=== PATIENT | female | born 1930 | race Caucasian/White ===

== ENCOUNTER 2017-09-22 15:38 | Inpatient (IN) | payer MEDICARE ==
[2017-09-22 16:51] LABS: Oxyhemoglobin 97.5 % (94.0-97.0); Sodium 168 mmol/L (135-148)
[2017-09-22 16:52] LABS: Mode NRB; Vent NO
[2017-09-22 17:07] LABS: Hematocrit 45.3 % (36.0-47.0); Mean Platelet Volume 9.9 fL (7.4-10.4); White Blood Cell (WBC) Count 26.5 thou/uL (4.8-10.8)
[2017-09-22 17:11] LABS: PTT 26.5 SEC (22.9-36.1); Prothrombin Time 18.3 SEC (12.0-14.7)
[2017-09-22 17:23] LABS: Band 17 % (5-11); Macrocytosis SLIGHT = 6-15 cells (100X) (0-5/hpf); Neutrophil 66 % (42-75); Polychromasia SLIGHT = 2-3 cells (100X) (0-2/hpf)
[2017-09-22 17:38] LABS: Troponin I 0.019 ng/mL (< 0.028)
[2017-09-22] MEDS ORDERED: Piperacillin/Tazobactam 3.375 GM in Sodium Chloride 0.9% 100 ML IVPB ONE (17:45)
[2017-09-22 17:47] LABS: ALT (SGPT) 20 U/L (8-55); AST (SGOT) 14 U/L (5-34); Alkaline Phosphatase 114 U/L (40-150); Anion Gap 14 mmol/L (10-20); BUN (Urea Nitrogen) 45 mg/dL (9.8-20.1); Bilirubin, Direct 0.4 mg/dL (0.1-0.3); Bilirubin, Total 0.9 mg/dL (0.2-1.2); Calc. Creatinine Clearance 0 mL/min (70-130); Calcium 9.1 mg/dL (7.8-10.44); Carbon Dioxide 25 mmol/L (23-31); Chloride 130 mmol/L (98-107); Estimated GFR-MDRD 52; Globulin 3.2 g/dL (2.4-3.5)
[2017-09-22 18:00] LABS: Bilirubin Small (Negative); Blood, Urine Large (Negative); Glucose, Urine (Dipstick) Negative (Negative); Ketone, Urine Negative (Negative); Nitrite Negative (Negative); Protein, Urine (Dipstick) 30 mg/dL (Neg-Trace)
[2017-09-22 18:02] LABS: Bacteria/HPF None Seen HPF (None Seen); Hyaline Casts/LPF 4-6 HYALINE CAST LPF (0-3 Hyaline); Squamous Epithelial 0-3 HPF (0-3)
--- NOTE | 2017-09-22 18:07 | RAD ---
AP VIEW CHEST 09/22/17 HISTORY: Altered mental status. AP view chest is obtained on 09/22/17. AP view chest demonstrates calcification of the aorta. The lungs are well aerated. No evidence of act selwyn intrathoracic disease seen. No evidence of effusions, pneumonia or pneumothorax seen. Bilateral s houlder degenerative changes are seen. IMPRESSION: Calcification of the aorta, otherwise unremarkable AP view chest. POS: [facility]
--- NOTE | 2017-09-22 18:22 | CON ---
DATE OF CONSULTATION: 09/22/2017 CHIEF COMPLAINT: Fever. HISTORY: The patient is an 87-year-old shelter patient with Alzheimer's who was seen 24 hours a go by her son said she was fine. This morning was called because she developed a fever and was sent to the hospital at [place]. There they did a CT scan that showed a distended gallbladder, some gall bladder wall thickening, as well as pericholecystic fluid and stranding. Surgeon there was about to do surgery, but anesthesiologist felt it was safer to have her transfer here. PAST MEDICAL HISTORY: Alzheimer's disease. She has had a recent right hip fracture. PAST SURGICAL HISTORY: Hysterectomy. She had hip surgery in June. MEDICATIONS: She takes a medicine for Alzheimer's, son does not recall what it is. ALLERGIES: She has an allergy to MORPHINE. SOCIAL HISTORY: She has been in the shelter for 3 years. She is . No tobacco. FAMILY HISTORY: Noncontributory. She is full code. PHYSICAL EXAMINATION: VITAL SIGNS: Temperature is 98.2, pulse 95, blood pressure 98/67. GENERAL: Elderly, very cachectic female. She is awake, but does not communicate. Sunken eyes and c heek bones, very crusty lips. HEENT: Otherwise, unremarkable. LUNGS: Clear. HEART: Regular rate and rhythm. ABDOMEN: Soft, nondistended. She has some mild tenderness in the right upper quadrant. EXTREMITIES: Unremarkable. LABORATORY DATA: Her lab is pending, but I have been told that her sodium was high at the other hosp [facility]. I do not have that information. ASSESSMENT: She appears to be volume depleted, recommended admission, electrolyte correction, antibi otics. We will try and get scheduled laparoscopic cholecystectomy for tomorrow.
[2017-09-22 18:26] LABS: RBC/HPF 21-50 HPF (0-3)
[2017-09-22 18:27] LABS: Renal Epithelial 0-3 HPF (0-3); Transitional Epithelial 0-3 HPF (0-3); Yeast-All Forms None Seen HPF (None Seen)
[2017-09-22] MEDS ORDERED: Milk Of Magnesia 30 ML UDCUP PO PRN (19:26)
[2017-09-22] MEDS ORDERED: Fleet Enema 133 ML BOT PR PRN (19:26)
[2017-09-22] MEDS ORDERED: Phytonadione 10 MG/ML AMP SC SCH (20:15)
[2017-09-22] MEDS ORDERED: Acetaminophen 325 MG TAB PO PRN (20:21)
[2017-09-22] MEDS ORDERED: Sodium Chloride 0.9% 1,000 ML IV SCH (20:21)
[2017-09-22] MEDS ORDERED: Ondansetron HCl/PF 4 MG/2 ML Vial IVP PRN (20:21)
[2017-09-22] MEDS ORDERED: Ondansetron ODT 4 MG TAB SL PRN (20:21)
--- NOTE | 2017-09-22 20:23 | PDOC.EVN ---
Event Note - Event Note Event Note: Attending H&P I personally evaluated the patient and discussed the management with Dr. Wilburn and Kassidy. I have reviewed the written H&P and it is repeated by me. I agree with the History, Examination, Assessment and Plan documented above with any addition or exceptions noted below. Ms. Aguilar has acute cholecystitis with severe sepsis. We appreciate Dr Nieto's surgical expertise in this matter. Patient has known significant dementia and lacks capacity/competency to make informed decisions for her care. After family discussions with Dr Nieto and Dr Yi, the and son confirmed that she is DNR. Antibiotics, IV fluid resuscitation were initiated in the ER and continue. MAP has been >65. GI prophylaxis intiaited. Vit K ordered for elevated INR. DVT prophylaxis ordered as well. Prognosis is guarded.
--- NOTE | 2017-09-22 20:26 | PDOC.EVN ---
Event Note - Event Note Event Note: Attedning H&P addendum Patient also has significant hypernatremia. Judicious IV hydration to avoid rapid correction yet while supporting her intravascular volume in the face of severe sepsis. Will have serial sodium checks tonight.
[2017-09-22] MEDS ORDERED: Lactated Ringer's 1,000 ML IV SCH ×3 (20:30→22:15)
[2017-09-22] MEDS ORDERED: Famotidine/PF 20 mg/2ml Vial SLOW IVP SCH (21:00)
[2017-09-22] MEDS ORDERED: cefOXitin 2 GM in Sodium Chloride 0.9% 100 ML IVPB SCH (22:00)
[2017-09-22] MEDS: Lactated Ringer's 1,000 ML IV SCH (22:05)
[2017-09-22] MEDS ORDERED: Acetaminophen 1,000 MG in Premix Bag 1 BAG IVPB PRN (22:07)
[2017-09-22] MEDS: cefOXitin 2 GM, Syringe 1 ML in Sterile Water 10 ML SLOW IVP SCH (22:29)
--- NOTE | 2017-09-22 23:31 | PDOC.EVN ---
Event Note - Event Note Event Note: Patient has had decline in her blood pressure. Recent MAPS have been between 65 -78. I initiated a third bolus of fluid, which will be appx 60 ml/kg of fluid resuscitation. I spoke with available family, which included patient's daughter and all available family agreed that if the patient's illness declined where her blood pressure dropped below MAP of 65, that the patient would not want a central line and pressors. I discussed the risks and benefits of that decision and they stated that they do not think that the patient would choose that if she could consent. will continue to fluid resuscitate as needed. Patient is in severe sepsis and already had developed hypovolemic hypernatremia before, she she may need signifcant amounts of fluids. We will watch sodium carefully.
[2017-09-22] MEDS ORDERED: Piperacillin/Tazobactam 4.5 GM in Sodium Chloride 0.9% 100 ML IVPB SCH (23:59)
[2017-09-23] MEDS: Piperacillin/Tazobactam 2.25 GM in Sodium Chloride 0.9% 100 ML IVPB SCH ×5 (00:11→23:49)
[2017-09-23 00:20] LABS: Anion Gap 11 mmol/L (10-20); BUN (Urea Nitrogen) 36 mg/dL (9.8-20.1); Calc. Creatinine Clearance 23 mL/min (70-130); Calcium 8.2 mg/dL (7.8-10.44); Carbon Dioxide 23 mmol/L (23-31); Chloride 134 mmol/L (98-107); Estimated GFR-MDRD 37
[2017-09-23] MEDS ORDERED: Lactated Ringer's 1,000 ML IV SCH ×3 (01:30→04:30)
--- NOTE | 2017-09-23 01:31 | HP-2 ---
CODE STATUS: DNR. PRIMARY CARE PHYSICIAN: Dr. Crescencio Vega ATTENDING: Dr. Xander Mina. RESIDENT: Dr. Mary Lou Wilburn. HISTORIAN: Patient's and son. CHIEF COMPLAINT: Increased drowsiness and fever. HISTORY OF PRESENT ILLNESS: Patient is an 87-year-old female with past medical history of severe Alz heimer's dementia, presents to the [place] ED from her [facility] with fever, found to have a gang renous gallbladder on CT at [place] ED. At baseline, the patient is alert and oriented x0, but janie nobles reports is normally more awake than when she first arrived to the ED. Family denies recent cough, congestion, change in stools, diarrhea. They report possible poor intake, but since the patient is at the [facility], they are not able to fully evaluate p.o. intake on a day to day basis. Family r eports that after receiving 1 liter normal saline in the ED that she is at her baseline. In the ED, she was given vancomycin and Zosyn and 1 liter normal saline. PAST MEDICAL HISTORY: Alzheimer's. PAST SURGICAL HISTORY: 1. Hysterectomy. 2. Right hip surgery. ALLERGIES: MORPHINE. MEDICATIONS: 1. Ascorbic acid 500 mg p.o. daily. 2. Alendronate sodium 35 mg p.o. q.7 days. 3. MiraLax 17 grams p.o. daily. 4. Mirtazapine 15 mg p.o. daily. 5. Vitamin D2 50,000 units p.o. every 7 days. 6. Senior multivitamins daily. 7. Senokot 1 tab p.o. daily. 8. Potassium chloride 7.5 mL p.o. daily. 9. Calcium carbonate/vitamin D3 one tab p.o. b.i.d. 10. Zinc sulfate 220 mg p.o. daily. 11. Nutritional supplement resource 2.09 mL p.o. t.i.d. FAMILY HISTORY: Noncontributory. SOCIAL HISTORY: Does have former smoking history. No alcohol or drug use. Patient lives in a [facility] home. REVIEW OF SYSTEMS: Hard to obtain due to the patient not able to report symptoms, but this is obtain ed from family members that who have seen her and they report fever, increased sleepiness or drowsine ss and fatigue and a right heel pressure ulcer. The patient has incontinence at baseline. All perti nent negatives are mentioned above in the HPI, including no cough, congestion, shortness of breath, e hong, nausea, vomiting, diarrhea, constipation, abdominal pain, rashes, syncope, or seizure. PHYSICAL EXAMINATION: VITAL SIGNS: Blood pressure 110/78, pulse 83, respiratory rate 18, T-max 98.2, pulse ox 100% on nonr ebreather, when evaluating her, she was on 2 liters and satting 97%. Current weight 54.43 kilograms. GENERAL: The patient is alert and oriented x0. SKIN: She has her eyes open. She is looking around. She mumbles nondescript word on occasion, but does not respond appropriately to questions. EYES: PERRLA, EOMI. ENT: Dry mucous membranes with obvious cracking of the lips. CARDIOVASCULAR: Regular rate and rhythm. No murmurs. Radial pulses 1+. RESPIRATORY: Normal effort, no retractions, clear to auscultation bilaterally. ABDOMEN: Positive guarding with groaning to palpation diffusely on the abdomen. Bowel sounds presen t. EXTREMITIES: There is trace lower extremity edema bilaterally, and a bruise/tender sore that is not open on posterior calcaneus of the right heel. MUSCULOSKELETAL: The patient has diffuse atrophy of muscles, obvious of malnutrition. NEUROLOGIC: No focal deficits, although the patient is hard to evaluate due to her status and not ab le to obey commands. LABORATORY DATA: CBC, white blood cell count 26.5, hemoglobin 14.1, hematocrit 45.3, platelets 101. Chemistry: Sodium 166, potassium 3.8, chloride 130, CO2 of 25, BUN 45, creatinine 1.01, glucose 158 , GFR 52, calcium 9.1, total protein 6.0, albumin 2.8, AST 14, ALT 20, alkaline phosphatase 114, tota l bilirubin 0.9, direct bilirubin 0.4. Coags: PT 18.3, INR 1.5, PTT 26.5. Lactic acid was 4 in the outside ER. Repeat lactic acid here is 5. CK-MB 1.5, troponin 0.019. TSH 2.2132. ABG was perform ed, pH 7.47, pCO2 of 29.9, PaO2 202.9. Chest x-ray shows calcification of the aorta, no acute proces s. CT from prior ER shows gangrenous gallbladder. ASSESSMENT AND PLAN: 1. Severe sepsis secondary to gangrenous gallbladder. Dr. Nieto was consulted in the ED, came down and evaluated the patient. The patient is not stable for surgery at this point would likely need IV fluid resuscitation and IV antibiotics prior to surgery. We will reevaluate tomorrow for possible davis rgery. Her possible laparoscopic cholecystectomy. We will continue with IV vancomycin and Zosyn. W e will give another liter of LR and maintenance fluids. We will provide Tylenol for fever and pain. we will repeat the lactic acid in 4 hours. The patient's blood pressure is on the low end of normal and continues to drop. Likely, we will need increased fluid resuscitation. We will reevaluate afte r 1 liter to maintain map above 65. Admit to IMCU. 2. Hypovolemic hypernatremia likely due to severe dehydration with sepsis in baseline, dehydration f rom fpc and end-stage dementia. We will start with 1 liter of LR and continue to reevaluate with q.4 hour BMPs and volume status clinically to determine need for more fluids. Anticipate multi ple liters to be given. Goal for decreasing sodium will be about 10 points in 24 hours. We will rec heck BMP as stated above in 4 hours. 3. Possible respiratory failure. Initially, patient was put on nonrebreather when we evaluated her, she is on nasal cannula at 2 liters and satting well. An ABG was done, which showed elevated PaO2. In the process of weaning down her oxygen at this point to determine her respiratory standpoint, it is unclear, if she was hypoxic at the ED in [place] from notes. We will continue to evaluate and pr ovide supplemental oxygen as needed. 4. Elevated PT and INR. Patient not taking any anticoagulants, but does have slightly elevated INR and PT and in preparation for surgery, we will give a small dose of vitamin K to decrease risk for bl eeding. 5. Lactic acidosis secondary to problem #1. 6. Respiratory alkalosis. We will monitor, respiratory rate. Unclear the cause of this at this poi nt, but consider repeat ABG in the morning. We will continue to monitor O2 sats and respiratory rate . 7. Severe end-stage chronic obstructive pulmonary Alzheimer's. Symptomatic treatment right now n.p. o., so we will hold home mirtazapine, but will continue to evaluate the need for IV meds for agitatio n. DISPOSITION AND LENGTH OF HOSPITAL STAY: Greater than 2 days. Symptomatic medication will be provided. History and physical exam as well as management was discussed with Dr. Xander Mina.
[2017-09-23] MEDS: Lactated Ringer's 1,000 ML IV SCH (02:54)
[2017-09-23 03:41] LABS: PTT 23.4 SEC (22.9-36.1); Prothrombin Time 18.2 SEC (12.0-14.7)
[2017-09-23 03:46] LABS: Band 19 % (5-11); Hematocrit 33.8 % (36.0-47.0); Mean Platelet Volume 9.6 fL (7.4-10.4); Neutrophil 65 % (42-75); Red Blood Cell (RBC) Count 3.36 mill/uL (4.20-5.40); White Blood Cell (WBC) Count 13.1 thou/uL (4.8-10.8)
[2017-09-23 04:02] LABS: ALT (SGPT) 14 U/L (8-55); AST (SGOT) 13 U/L (5-34); Alkaline Phosphatase 80 U/L (40-150); Anion Gap 9 mmol/L (10-20); BUN (Urea Nitrogen) 34 mg/dL (9.8-20.1); Bilirubin, Total 0.7 mg/dL (0.2-1.2); Calc. Creatinine Clearance 29 mL/min (70-130); Calcium 7.9 mg/dL (7.8-10.44); Carbon Dioxide 25 mmol/L (23-31); Chloride 132 mmol/L (98-107); Estimated GFR-MDRD 49; Globulin 2.2 g/dL (2.4-3.5); Protein, Total 4.1 g/dL (6.0-8.3)
[2017-09-23] MEDS: cefOXitin 2 GM, Syringe 1 ML in Sterile Water 10 ML SLOW IVP SCH ×2 (05:57→19:20)
--- NOTE | 2017-09-23 07:37 | PDOC.FM ---
- Subjective Subjective: Pt alert and oriented x 0 at baseline. She appears to be close to her baseline. No adverse events overnight. - Objective MAR Reviewed: Yes Vital Signs & Weight: Vital Signs (12 hours) Temp Pulse Resp BP Pulse Ox 09/23/17 04:00 97.5 F L 72 18 108/55 L 99 09/23/17 00:00 96.9 F L 85 16 91/52 L 100 09/22/17 21:00 98.3 F 102 H 18 96 09/22/17 20:15 98.3 F 102 H 18 119/49 L 96 Weight Weight 47.4 kg Result Diagrams: 09/23/17 03:10 09/23/17 03:10 <Mackenzie Gillespie - Last Filed: 09/23/17 12:30> - Objective Vital Signs & Weight: Vital Signs (12 hours) Temp Pulse Resp BP Pulse Ox 09/23/17 16:55 95 09/23/17 15:16 98.9 F 75 20 81/44 L 90 L 09/23/17 12:48 97 09/23/17 11:10 98.1 F 75 16 89/46 L 99 09/23/17 08:58 97.4 F L 74 16 96 09/23/17 07:11 97.4 F L 74 16 100/48 L 98 Weight Admit Weight 47.4 kg Weight 47.4 kg I&O: 09/22/17 09/23/17 09/24/17 06:59 06:59 06:59 Intake Total 4670 Output Total 370 Balance 4300 Result Diagrams: 09/23/17 03:10 09/23/17 12:34 <Gisele Harkins - Last Filed: 09/23/17 17:54> Phys Exam - Physical Examination Constitutional: NAD Respiratory: clear to auscultation bilateral Cardiovascular: RRR Gastrointestinal: soft, no distention, positive bowel sounds tenderness to palpation in RUQ Musculoskeletal: edema present Deviation from normal: pt responds to her name, but otherwise is nonconversant. <Mackenzie Gillespie - Last Filed: 09/23/17 12:30> Dx/Plan (1) Sepsis associated hypotension Code(s): A41.9 - SEPSIS, UNSPECIFIED ORGANISM Status: Acute Plan: Resolved. Pt's MAP low, but there is no evidence of tissue hypoperfusion/lactic acidosis. Fever secondary to acute cholecystitis. Will continue treatment with antibiotics. IR to perform cholecystostomy. (2) Cholecystitis, acute Code(s): K81.0 - ACUTE CHOLECYSTITIS Status: Acute Plan: Cholecystostomy planned (3) Chronic hypernatremia Code(s): E87.0 - HYPEROSMOLALITY AND HYPERNATREMIA Status: Chronic Plan: Likely secondary to poor PO intake. Will treat with D5 1/4 normal saline at a rate of 100. Repeat BMP. Goal is to decrease sodium no more than 10 in 24 hours. (4) Alzheimers disease Code(s): G30.9 - ALZHEIMER'S DISEASE, UNSPECIFIED Status: Acute QualifierTitle: Alzheimer's disease onset: unspecified onset Plan: A&O x 0 at baseline. (5) Acute kidney injury Code(s): N17.9 - ACUTE KIDNEY FAILURE, UNSPECIFIED Status: Resolved Plan: Resolving. <Mackenzie Gillespie - Last Filed: 09/23/17 12:30> Attending Addendum - Attending Addendum I personally evaluated the patient and discussed the management with Dr. Gillespie I agree with the History, Examination, Assessment and Plan documented above with any addition or exceptions noted below- Patient nonverbal; responds to tactile stimuli. Afebrile VSS A/P: 1) Sepsis syndrome- adequately fluid resuscitated; continue to monitor urine output; continue IV abx, 2) Cholecystitis- plan for CT guided biliary drainage as per surgery; continue IV abx, 3) Hypernatremia- slowly downtrending. IVF changed to increase free water; continue to monitor BMP, 4) Advanced dementia- palliative care consulted <Gisele Harkins - Last Filed: 09/23/17 17:54>
--- NOTE | 2017-09-23 08:18 | PDOC.FM ---
- Objective Vital Signs & Weight: Vital Signs (12 hours) Temp Pulse Resp BP BP Pulse Ox 09/23/17 07:11 97.4 F L 74 16 100/48 L 98 09/23/17 04:00 97.5 F L 72 18 108/55 L 99 09/23/17 00:00 96.9 F L 85 16 91/52 L 100 09/22/17 21:00 98.3 F 102 H 18 96 Weight Weight 47.4 kg I&O: 09/22/17 09/23/17 09/24/17 06:59 06:59 06:59 Intake Total 4670 Output Total 370 Balance 4300 Result Diagrams: 09/23/17 03:10 09/23/17 03:10 Dx/Plan (1) Sepsis associated hypotension Code(s): A41.9 - SEPSIS, UNSPECIFIED ORGANISM Status: Acute Plan: Pt received 5L LR overnight. Most recent BP 100/48 with MAP of 65. UOP of only 370 ml last night. Lactate downtrending. Will obtain repeat Lactate to determine level of perfusion. No need to start pressors at this time. (2) Chronic hypernatremia Code(s): E87.0 - HYPEROSMOLALITY AND HYPERNATREMIA Status: Chronic Plan: Will begin treatment with free water after adequate volume resuscitation has been acheived. goal of lowering Na 10 points over 24 hours. (3) Cholecystitis, acute Code(s): K81.0 - ACUTE CHOLECYSTITIS Status: Acute Plan: Continue antibiotic treatment with Vancomycin and Zosyn. Will await Dr. Nieto recommendations regarding surgery. (4) Chronic kidney disease (CKD) Code(s): N18.9 - CHRONIC KIDNEY DISEASE, UNSPECIFIED Status: Acute Qualifiers: Chronic kidney disease stage: stage 3 (moderate) Qualified Code(s): N18.3 - Chronic kidney disease, stage 3 (moderate) Plan: Stage 3 based on recent (5) Alzheimers disease Code(s): G30.9 - ALZHEIMER'S DISEASE, UNSPECIFIED Status: Acute
[2017-09-23 08:20] LABS: Lactic Acid - Sepsis 2.1 mmol/L (0.5-2.2)
[2017-09-23] MEDS ORDERED: Dextrose 5% in Water 1,000 ML IV SCH (08:45)
[2017-09-23] MEDS ORDERED: D5 1/4 NS 1,000 ML IV SCH ×2 (09:00→15:31)
--- NOTE | 2017-09-23 11:50 | CON ---
DATE OF SERVICE: 09/23/2017 SERVICE: Pulmonary Medicine. REASON FOR CONSULTATION: IMCU patient. HISTORY OF PRESENT ILLNESS: The patient is an 87-year-old white female with past medical history sig nificant for dementia. At baseline, she is alert and oriented only x0. She was in her usual state o f health when she started taking decreasing p.o. She was brought to the emergency department by her family. Ultimately, she was discovered to have findings consistent with cholecystitis. Surgical con sultation was placed, but the patient was deemed not to be a surgical candidate given her multiple el ectrolyte derangements and sepsis profile. As such, a cholecystostomy tube was being prepared. She cannot provide any additional elements of the history. No family is at bedside for cleaning any anbial tional information from historical events. PAST MEDICAL HISTORY: Alzheimer's disease with advanced dementia. PAST SURGICAL HISTORY: 1. Hysterectomy. 2. Right hip surgery. ALLERGIES: MORPHINE. MEDICATIONS: List of her inpatient medications was reviewed. No updates were made at this time. FAMILY HISTORY: Noncontributory. SOCIAL HISTORY: She has a remote history of smoking. She has no current alcohol, tobacco or illicit drug use. She lives in a prison. REVIEW OF SYSTEMS: Cannot be obtained as the patient is status encephalopathic. PHYSICAL EXAMINATION: VITAL SIGNS: Afebrile, pulse 74, blood pressure 100/48, respirations 16, saturation 98% on 1 liter n tacho cannula. GENERAL: The patient is somnolent. When I say her name loudly, she does respond appropriately. HEENT: Normocephalic, atraumatic. Sclerae are white, conjunctivae pink. Oral and nasal mucosa is m oist without lesions. LUNGS: Decent air entry. There is no prolonged expiratory phase or wheezing, rhonchi or crackles. HEART: Normal rate, regular. ABDOMEN: Soft. Abdominal discomfort is present with palpation of the right upper quadrant. There i s a little bit of rebound. No guarding. Bowel sounds are hypoactive. GENITOURINARY: Bailon catheter in place. NEUROLOGIC: Grossly nonfocal. LABORATORY DATA: WBC 13.1 and down trending, hemoglobin 10.2, platelets 123,000. Band count is incr easing to 19%, but the lymphocyte count is currently stable. INR 1.5. PH 7.47, pCO2 of 29, pO2 of 2 02. Sodium 162 and gently down trending, chloride 132 and also down trending. BUN 34, creatinine 1. 06. Liver function studies are essentially unremarkable. Lactate is 2.1. Urinalysis is positive fo r leukocyte esterase and white blood cells, but there are no nitrites. ASSESSMENT: 1. Severe sepsis. 2. Hypernatremia. 3. Metabolic encephalopathy. 4. Dementia, advanced. 5. Cholecystitis, possible. PLAN: We will continue to replace her free water. I think she has adequately been volume resuscitat ed at this point. We will watch her for signs of hyperkalemia moving forward and consider a dose of Lasix in 24 hours when she clears her sepsis profile. This can also be done sooner if she starts to develop increasing respiratory failure which does not currently exist Pulmonary Critical Care will c ontinue to follow while the patient remains in the IMCU. We will need to watch her very closely afte r her cholecystostomy tube for signs of decompensation sometimes, it will start up the sepsis profile . Continue antibiotics directed at abdominal pathology. Supportive care will otherwise be continued . I do think a palliative care consultation should be considered to discuss goals of care moving for jones as the patient as per my understanding is at baseline, the patient has very advanced dementia an d would not recognize the situation or family members. Additionally, she has increasing debility and spends most of her time in a bed.
[2017-09-23 13:00] LABS: Anion Gap 6 mmol/L (10-20); BUN (Urea Nitrogen) 28 mg/dL (9.8-20.1); Calc. Creatinine Clearance 33 mL/min (70-130); Calcium 7.6 mg/dL (7.8-10.44); Carbon Dioxide 27 mmol/L (23-31); Estimated GFR-MDRD 57
[2017-09-23 13:04] LABS: Chloride 127 mmol/L (98-107)
[2017-09-23] MEDS ORDERED: Lactated Ringer's 500 ML IV SCH (17:00)
[2017-09-23] MEDS: Vancomycin HCl 750 MG in Sodium Chloride 0.9% 250 ML 250 ML IVPB SCH (18:54)
[2017-09-23] MEDS ORDERED: Famotidine/PF 20 mg/2ml Vial SLOW IVP SCH (21:00)
[2017-09-24] MEDS ORDERED: Acetaminophen 1,000 MG in Premix Bag 1 BAG IVPB PRN (03:33)
[2017-09-24] MEDS ORDERED: D5 1/4 NS w/20 mEq KCL 1,000 ML IV SCH (03:45)
[2017-09-24 05:17] LABS: AST (SGOT) 14 U/L (5-34); Bilirubin, Total 0.8 mg/dL (0.2-1.2); Calcium 7.3 mg/dL (7.8-10.44)
[2017-09-24 05:21] LABS: Chloride 127 mmol/L (98-107)
[2017-09-24 05:29] LABS: ALT (SGPT) 13 U/L (8-55); Alkaline Phosphatase 89 U/L (40-150); Anion Gap 12 mmol/L (10-20); BUN (Urea Nitrogen) 22 mg/dL (9.8-20.1); Calc. Creatinine Clearance 40 mL/min (70-130); Carbon Dioxide 22 mmol/L (23-31); Estimated GFR-MDRD 71; Globulin 2.3 g/dL (2.4-3.5); Protein, Total 4.3 g/dL (6.0-8.3)
[2017-09-24] MEDS: Piperacillin/Tazobactam 2.25 GM in Sodium Chloride 0.9% 100 ML IVPB SCH ×3 (05:51→17:32)
[2017-09-24 05:59] LABS: Red Blood Cell (RBC) Count 3.62 mill/uL (4.20-5.40); White Blood Cell (WBC) Count 18.8 thou/uL (4.8-10.8)
[2017-09-24] MEDS ORDERED: Furosemide 20 MG/2 ML VIAL SLOW IVP SCH ×2 (06:00)
[2017-09-24 06:23] LABS: Band 7 % (5-11); Neutrophil 74 % (42-75)
--- NOTE | 2017-09-24 08:30 | PDOC.FM ---
- Subjective Subjective: Pt remains A&O x 0. No adverse events overnight. - Objective MAR Reviewed: Yes Vital Signs & Weight: Vital Signs (12 hours) Temp Pulse Resp BP Pulse Ox 09/24/17 08:04 98 09/24/17 07:09 99.2 F 86 20 86/44 L 98 09/24/17 04:00 97.4 F L 88 22 H 100/50 L 99 09/24/17 00:00 97.7 F 73 20 89/44 L 98 Weight Admit Weight 47.4 kg Weight 49.85 kg I&O: 09/23/17 09/24/17 09/25/17 06:59 06:59 06:59 Intake Total 4670 2527 Output Total 370 1100 Balance 4300 1427 Result Diagrams: 09/24/17 05:44 09/24/17 04:32 <Mackenzie Gillespie - Last Filed: 09/24/17 09:19> - Objective Vital Signs & Weight: Vital Signs (12 hours) Temp Pulse Resp BP Pulse Ox 09/24/17 08:04 98 09/24/17 07:09 99.2 F 86 20 86/44 L 98 09/24/17 04:00 97.4 F L 88 22 H 100/50 L 99 09/24/17 00:00 97.7 F 73 20 89/44 L 98 Weight Admit Weight 47.4 kg Weight 49.85 kg I&O: 09/23/17 09/24/17 09/25/17 06:59 06:59 06:59 Intake Total 4670 2527 Output Total 370 1100 Balance 4300 1427 Result Diagrams: 09/24/17 05:44 09/24/17 04:32 <Gisele Harkins - Last Filed: 09/24/17 10:21> Phys Exam - Physical Examination Constitutional: NAD Respiratory: clear to auscultation bilateral Cardiovascular: RRR Gastrointestinal: soft, non-tender, no distention Musculoskeletal: edema present (lower extremity and sacral edema) <Mackenzie Gillespie - Last Filed: 09/24/17 09:19> Dx/Plan (1) Cholecystitis, acute Code(s): K81.0 - ACUTE CHOLECYSTITIS Status: Acute Plan: WBC still elevated. Pt remains afebrile. Continue Vanc/Zosyn. Cholecystostomy planned for today. (2) Chronic hypernatremia Code(s): E87.0 - HYPEROSMOLALITY AND HYPERNATREMIA Status: Chronic Plan: Likely secondary to poor PO intake/dehydration Improving. continue treatment with D5 1/4 normal saline at a rate of 100. Repeat BMP in AM (3) Alzheimers disease Code(s): G30.9 - ALZHEIMER'S DISEASE, UNSPECIFIED Status: Acute QualifierTitle: Alzheimer's disease onset: unspecified onset Plan: A&O x 0 at baseline. (4) Edema due to hypervolemia Code(s): R60.9 - EDEMA, UNSPECIFIED; E87.70 - FLUID OVERLOAD, UNSPECIFIED Status: Acute Plan: related to fluids given for volume resuscitation. Will continue daily Lasix. Pt diuresing well with AM lasix given. - Plan Plan: Disposition: stable currently. Palliative care consulted, and family discussion hopefully to occur this afternoon. <Mackenzie Gillespie - Last Filed: 09/24/17 09:19> Attending Addendum - Attending Addendum I personally evaluated the patient and discussed the management with Dr. Gillespie I agree with the History, Examination, Assessment and Plan documented above with any addition or exceptions noted below- Patient responds to touch. Not oriented. Afebrile VSS A/P: 1) sepsis syndrome - resolved; continue ov abx, 2) cholecystitis- plan for CT guided drainage today; continue abx, 3) Advanced dementia- no change, 4) Disposition- palliative care consulted; plan for family discussion to include desire for pressors if situation worsens after drainage procedure. 5) Hypernatremia- improving; continue current IVF. <Gisele Harkins - Last Filed: 09/24/17 10:21>
[2017-09-24] MEDS ORDERED: Enoxaparin Sodium 30 MG/0.3 ML SYRINGE SC SCH (09:00)
[2017-09-24] MEDS ORDERED: FLU VACC TS2017-18 (>65YR) 0.5 ML SYRINGE IM ONE (09:00)
[2017-09-24] MEDS ORDERED: Potassium Chloride 40 MEQ, Admixture Fee 1 EACH in Sodium Chloride 0.9% 250 ML 250 ML IVPB SCH (09:15)
[2017-09-24] MEDS ORDERED: Potassium Chloride 40 MEQ in Premix Bag 1 BAG IVPB SCH (09:15)
[2017-09-24] MEDS ORDERED: Sodium Bicarbonate 2.4 MEQ/5 ML ONE (10:20)
[2017-09-24] MEDS ORDERED: Fentanyl 100 MCG/2 ML VIAL ONE (10:20)
[2017-09-24] MEDS ORDERED: Midazolam HCl 2 mg/2 ml Vial ONE (10:21)
--- NOTE | 2017-09-24 11:02 | PDOC.EVN ---
Event Note - Event Note Event Note: Discussed with Pt's son, Reggie who is MPOA, that in the event that patient decompensates after her cholecystostomy procedure, she may need vasopressors to support her blood pressure which would require a central line. He states that he would like a central line to be placed if needed. He reiterates patient's code status as DNR/DNI.
--- NOTE | 2017-09-24 12:04 | PRG ---
DATE OF SERVICE: 09/24/2017 SERVICE: Pulmonary Medicine. INTERVAL HISTORY: The patient is doing really well from a respiratory standpoint. She is on 2 liter s nasal cannula and her saturations are doing okay. She looks to be in no distress. She cannot prov gus any additional elements of the history. There were no reported events that occurred overnight. PHYSICAL EXAMINATION: VITAL SIGNS: Afebrile with a T-max of 99.2. Pulse 87, blood pressure 100/50, respirations 20, satur ation 100% on 1 liter nasal cannula. GENERAL: The patient is awake and alert. She is in no apparent distress. LUNGS: Excellent air entry with crackles. HEART: Normal rate and regular. ABDOMEN: Soft, nontender, nondistended. Bowel sounds are positive. MUSCULOSKELETAL: No cyanosis or clubbing. There is 2+ pitting in the bilateral lower extremities. NEUROLOGIC: Grossly nonfocal. LABORATORY DATA: WBC 18.8, hemoglobin 11.2, and platelets 124,000. Neutrophil count is 74% and band s are dropping. INR 1.5. Potassium 3.3. Sodium is down trending 156, chloride is down trending 127 . Basic metabolic profile is otherwise unremarkable. Urinalysis is negative. Blood cultures x2 and urine culture are negative. ASSESSMENT: 1. Severe sepsis. 2. Hypernatremia. 3. Metabolic encephalopathy. 4. Dementia. 5. Cholecystitis. PLAN: She is going down for percutaneous cholecystostomy drain today. The patient has been adequate ly volume resuscitated. We will continue to provide her with free water. The only thing that we hav e available is 0.2% saline. As such, we are going to have to use. She will stay in the IMCU until h er blood pressures firm up a little bit. She will continue her antibiotics directed at pathology. Pulmonary or Critical Care will continue to follow while she remains inhouse. Ultimately, once she recovers from her sepsis profile, we will need to start diuresing her gently.
--- NOTE | 2017-09-24 12:13 | CT ---
CT GUIDED CHOLECYSTOSTOMY: History: Acute cholecystitis. Informed consent was obtained from the patient's family. Per order of Dr. Nieto we were asked to perf orm a CT guided cholecystostomy. FINDINGS: The gallbladder was localized using CT guidance. The overlying skin was prepped and draped in the usu al sterile manner. A 1% Lidocaine solution was used to anesthetize overlying soft tissues. A small de rmatotomy was made. A 5 Ukrainian Yueh needle was placed under CT guidance after passing through the rig ht hepatic lobe into the gallbladder. A 035 Amplax wire was introduced. This was followed by an 8 [facility] dilator. An 8 Ukrainian all-purpose drainage catheter was placed over the wire into the gallbladder. Position was confirmed using CT guidance. IMPRESSION: Successful percutaneous gallbladder drainage. POS: JOSÉ MANUEL
[2017-09-24] MEDS: Ketorolac Tromethamine 30 MG/ML VIAL IVP PRN ×2 (12:29→22:07)
[2017-09-24] MEDS: D5 1/4 NS w/20 mEq KCL 1,000 ML IV SCH ×2 (12:30→15:12)
[2017-09-24 13:15] VITALS: BMI 20.7
--- NOTE | 2017-09-24 13:52 | PQF ---
DATE: 09-24-17 ATTN: DR. AVE KNOTT / DR. VINCENT FONTANEZ Please exercise your independent, professional judgment in responding to the clarification form. Clinical indicators are provided on the bottom of this form for your review Please check appropriate box(s): [ ] Shock (please further specify type): [ ] Hypovolemic [ ] Septic [ X ] No Shock [ ] Other diagnosis [ ] Unable to determine In addition, please specify: Present on Admission (POA): [ ] Yes [ ] No [ ] Unable to determine For continuity of documentation, please document condition throughout progress notes and discharge summary. Thank You. CLINICAL INDICATORS - SIGNS / SYMPTOMS / LABS H&P: SEVERE ALZHEIMER DEMENTIA, AT BASELINE, THE PATIENT IS ALERT AND ORIENTED X 0, BUT FAMILY REPORTS IS NORMALLY MORE AWAKE THAN WHEN SHE FIRST ARRIVED TO ED. IN THE ER SHE WAS GIVEN VANCOMYCIN AND ZOSYN AND 1 LITER NORMAL SALINE H&P: SEVERE SEPSIS SECONDARY TO GANGRENOUS GALLBLADDER, HYPOVOLEMIC HYPERNATREMIA LIKELY DUE TO SEVERE DEHYDRATION LACTIC ACID: 09-22-17: 5.3 HEMOGLOBIN: 09-22-17: 14.1 09-23-17: 10.2 09-24-17: 11.5 HEMATOCRIT: 09-22-17: 45.3 09-23-17: 33.8 09-24-17: 36.0 BP: (ER) 79/56, 91/70 09-22-17: 119/49 09-23-17: 100/48, 89/46, 81/44, 92/54 09-24-17: 89/44, 100/50, 80/59, 86/[address] SORIANO 10-23-16: ANTIBIOTICS, IV FLUID RESUSCITATION WERE INITIATED IN ER AND CONTINUE. MAP MONTE BEEN >65. EVENT NOTE DR. SORIANO 09-22-17: PATIENT HAS HAD A DECLINE IN HER BP, RECENT MAPS HAVE BEEN BETWEEN 65-78. I INITIATED A THIRD BOLUS OF FLUID, WHICH WILL BE APPROX 60ML/KG OF FLUID RESUSCITATION. RISK FACTORS: H&P: SEVERE SEPSIS SECONDARY TO GANGRENOUS GALLBLADDER, HYPOVOLEMIC HYPERNATREMIA LIKELY DUE TO SEVERE DEHYDRATION TREATMENTS: EVENT NOTE DR. SORIANO 10-23-16: ANTIBIOTICS, IV FLUID RESUSCITATION WERE INITIATED IN ER AND CONTINUE. MAP MONTE BEEN >65. EVENT NOTE DR. SORIANO 09-22-17: PATIENT HAS HAD A DECLINE IN HER BP, RECENT MAPS HAVE BEEN BETWEEN 65-78. I INITIATED A THIRD BOLUS OF FLUID, WHICH WILL BE APPROX 60ML/KG OF FLUID RESUSCITATION. WILL CONTINUE TO FLUID RESUSCITATE NEEDED. PATIENT IS IN SEVERE SEPSIS AND ALREADY HAD DEVELOPED HYPOVOLEMIC HYPERNATREMIA BEFORE, SHE MAY NEED SIGNIFICANT AMOUNTS OF FLUIDS. 09-22-17: (MAR) ZOSYN, VANCOMYCIN (This form is maintained as a part of the permanent medical record) 2014 [employer]. All Rights Reserved [email or web address] Office: [phone] [facility]
--- NOTE | 2017-09-24 14:06 | PQF ---
DATE: 09-24-17 ATTN: DR. AVE KNOTT / DR. VINCENT FONTANEZ Please exercise your independent, professional judgment in responding to the clarification form. Clinical indicators are provided on the bottom of this form for your review Please check appropriate box(s): [ ] UTI please specify if due to or related to (as applicable): [ ] Indwelling catheter [ ] Unable to determine etiology UTI Site: [ ] Kidney [ ] Ureter [ ] Bladder [ ] Urethra [ ] Unable to determine Specify Organism (if known): [ ] Unknown organism [X ] Contaminated urine specimen without UTI - negative urine culture [ ] Other diagnosis [ ] Unable to determine In addition, please specify: Present on Admission (POA): [ ] Yes [X ] No [ ] Unable to determine For continuity of documentation, please document condition throughout progress notes and discharge summary. Thank You. CLINICAL INDICATORS - SIGNS / SYMPTOMS / LABS URINE: 09-22-17: URINE PROTEIN: 30 H URINE BLOOD: LARGE H URINE BILIRUBIN: SMALL H UR LEUKOCYTE ESTERASE: MODERATE H URINE RBC: 21-50 H URINE WBC: 11-20 H RISK FACTORS: (ER) INDWELLING URINARY CATH PRESENT PLACED [employer]EL[employer] H&P: SEVERE ALZHEIMER DEMENTIA, FROM [place] TREATMENT: (DEC) 09-24-17: IVF, ZOSYN ( 09-22-17), VANCOMYCIN ( ) (This form is maintained as a part of the permanent medical record) 2014 [employer]. All Rights Reserved [email or web address] Office: [phone] ERNIE
[2017-09-24 17:16] LABS: Vancomycin, Trough 11.4 ug/mL
[2017-09-24] MEDS: Vancomycin HCl 750 MG in Sodium Chloride 0.9% 250 ML 250 ML IVPB SCH (17:32)
[2017-09-24] MEDS ORDERED: Fentanyl 100 MCG/2 ML VIAL SLOW IVP PRN ×2 (19:08→19:28)
--- NOTE | 2017-09-24 19:25 | PDOC.EVN ---
Event Note - Event Note Event Note: Spoke with family, including SOBIAA, son Reggie, after I was called by nurse. Percutaneous cholecystostomy tube that was placed today fell out. IR was called and deemed patient too unstable for replacing drain. Discussed with family about our options for treatment including continued Abx and fluids vs hospice care with comfort measures only. Family was in agreement that patient would not want any more treatment. Hospice to see patient in the morning with comfort measures to take affect now. Comfort measures were explained in detail. Patients current pressure is 70's/50's with a MAP of 50. Pain treatment at this time includes IV Tylenol. Will add IV Fentanyl prn for breakthrough pain and transfer to Oncology unit.
[2017-09-24 23:26] VITALS: BP 65/41; TEMP 97.9
--- NOTE | 2017-09-25 07:27 | PDOC.FM ---
- Subjective Subjective: Patient sleeping with labored breathing, no acute distress. - Objective MAR Reviewed: Yes Vital Signs & Weight: Vital Signs (12 hours) Temp Pulse Resp BP Pulse Ox 09/24/17 20:25 97.9 F 69 28 H 65/41 L 100 Weight Admit Weight 47.4 kg Weight 49.85 kg I&O: 09/24/17 09/25/17 09/26/17 06:59 06:59 06:59 Intake Total 2527 1825 Output Total 1100 350 150 Balance 1427 1475 -150 Result Diagrams: 09/24/17 05:44 09/24/17 04:32 <Ilana Jones - Last Filed: 09/25/17 07:25> - Objective Vital Signs & Weight: Vital Signs (12 hours) Temp Pulse Resp Pulse Ox 09/25/17 08:00 97.9 F 69 16 100 Weight Admit Weight 47.4 kg Weight 49.85 kg I&O: 09/24/17 09/25/17 09/26/17 06:59 06:59 06:59 Intake Total 2527 1825 Output Total 1100 350 150 Balance 1427 1475 -150 Result Diagrams: 09/24/17 05:44 09/24/17 04:32 <Gisele Harkins - Last Filed: 09/25/17 09:50> Phys Exam - Physical Examination Constitutional: NAD HEENT: moist MMs Respiratory: no wheezing Labored breathing Cardiovascular: RRR, no significant murmur Gastrointestinal: soft, non-tender, no distention, positive bowel sounds Musculoskeletal: pulses present Deviation from normal: A&Ox0 <Ilaan Jones - Last Filed: 09/25/17 07:25> Dx/Plan (1) Cholecystitis, acute Code(s): K81.0 - ACUTE CHOLECYSTITIS Status: Acute Plan: Gangrenous gallbladder s/p c-tube placement on 09/24 that subsequently fell out. IR deemed patient too unstable to replace at this time. -After several discussions with the family including STEFFEN Paredes, they have decided for comfort care only with hospice. -Stopped all treatment -Will make patient comfortable with toradol and IV fentanyl -Palliative care and spiritual care consulted, appreciate recs (2) Alzheimers disease Code(s): G30.9 - ALZHEIMER'S DISEASE, UNSPECIFIED Status: Acute QualifierTitle: Alzheimer's disease onset: unspecified onset Dementia behavioral disturbance: without behavioral disturbance Qualified Code(s): G30.9 - Alzheimer's disease, unspecified; F02.80 - Dementia in other diseases classified elsewhere without behavioral disturbance; F02.80 - Dementia in other diseases classified elsewhere without behavioral disturbance; F02.80 - Dementia in other diseases classified elsewhere without behavioral disturbance Plan: AOx0 at baseline -[facility] has decided to place patient on hospice -Palliative care and spiritual care have been consulted (3) Edema due to hypervolemia Code(s): R60.9 - EDEMA, UNSPECIFIED; E87.70 - FLUID OVERLOAD, UNSPECIFIED Status: Acute Plan: Patient had edema 2/2 fluid resuscitation Lasix has been stopped 2/2 decision for hospice -[facility] has decided to place patient on hospice -Palliative care and spiritual care have been consulted (4) Sepsis associated hypotension Code(s): A41.9 - SEPSIS, UNSPECIFIED ORGANISM Status: Resolved Plan: Patient has had low BP around 60s/40s with MAPs in the high 40s-low 50s. -[facility] decided to not place central line and do aggressive resuscitation. -[facility] has decided to place patient on hospice -Palliative care and spiritual care have been consulted <Ilana Jones - Last Filed: 09/25/17 07:25> Attending Addendum - Attending Addendum I personally evaluated the patient and discussed the management with Dr. Jones I agree with the History, Examination, Assessment and Plan documented above with any addition or exceptions noted below- Patient moaning softly. No response to verbal stimuli or painful stimuli. Afebrile BP 60-70/40s A/P: Sepsis secondary to cholecystitis- drain dislodged yesterday; per resident note , family requested change to comfort care for patient. Hospice consult today. Continue pain meds as needed. <Gisele Harkins - Last Filed: 09/25/17 09:50>
--- NOTE | 2017-09-25 14:16 | PRG ---
DATE OF SERVICE: 09/25/2017 SUBJECTIVE: Margie Aguilar is 87-year-old gentleman who is unresponsive. OBJECTIVE: VITAL SIGNS: Sats 100% on 2 liters, temperature 97, blood pressure is low 65/41 and labored respirat ion. CHEST: Decreased breath sounds. CARDIAC: Normal S1, S2. No gallops. ABDOMEN: Soft, no masses. IMPRESSION: Metabolic encephalopathy, sepsis, hypertension. PLAN: Continued comfort care. Will follow.
[2017-09-25] MEDS ORDERED: Vancomycin HCl 1 GM in Premix Bag 1 BAG IVPB SCH (18:00)
--- NOTE | 2017-09-27 08:03 | DIS-2 ---
DATE OF ADMISISON: 09/22/2017 DATE OF DISCHARGE: 09/25/2017 RESIDENT: Mackenzie Gillespie M.D., PGY-2. ADMITTING ATTENDING: Xander Mina M.D. DISCHARGE ATTENDING: Gisele Harkins M.D. CONSULTS: 1. Jasbir Nieto M.D. 2. Patrice Snyder M.D. PROCEDURES: CT guided percutaneous cholecystostomy tube placement. PRIMARY DIAGNOSES: 1. Severe sepsis secondary to acute cholecystitis. 2. Chronic hypernatremia. SECONDARY DIAGNOSIS: End-stage dementia. HOSPITAL COURSE: The patient is an 87-year-old female that presented [facility] with change in baseline with fever and somnolence. She was found to have an elevated sodium level of 165 at an outside ER and was also found to have gangrenous gallbladder. The decision was made to transfer the patient from an outside ER. After transfer, Dr. Nieto was consulted for surgical evaluation. The patient was deemed not to be a surgical candidate, so Interventional Radiology was discussed. The patient received antibiotics and fluid resuscitation for sepsis. Though her blood pressures continued to remain low, there was no evidence of end-organ damage as urine output was well maintained. She received fluid resuscitation until lactate was cleared. She was then started on D5 1/4 normal saline for correction of the hypernatremia. The day after admission, the patient did undergo percutaneous cholecystostomy tube placement and shortly after this, she continued to decline with low blood pressures and severe pain. The patient's cholecystostomy tube became dislodged several hours after placement. After a discussion with Interventional Radiology , the patient was deemed unstable to replace the tube at that time. After multiple discussions with the family including the patient's son who is the medical power of senior trial attorney and did eventually decide on comfort care with inpatient hospice. After that decision was made, comfort care became the primary goal for the patient. DISPOSITION: Guarded. DISCHARGE INSTRUCTIONS: Inpatient hosp[facility] with [facility]. [facility]
--- NOTE | 2017-10-09 15:00 | EKG ---
Test Reason : Blood Pressure : / mmHG Vent. Rate : 111 BPM Atrial Rate : 111 BPM P-R Int : 128 ms QRS Dur : 064 ms QT Int : 346 ms P-R-T Axes : 008 -41 -07 degrees QTc Int : 470 ms Sinus tachycardia Left axis deviation Inferior infarct , age undetermined Anterolateral infarct , age undetermined Abnormal ECG Confirmed by JUAN BOCANEGRA D.O. ([id number]), senior editor RIRI FLORES ([id number]) on 10/09/2017 2:59:17 PM Referred By: SAHRA Confirmed By:JUAN BOCANEGRA D.O.
== END 2017-09-25 17:30 | disposition hospice, inpatient (51) | DRG 871 ==
LOC: ERS 15:38 → IMCU/EMU 20:10 → ONC 09-24 20:02
PROVIDERS: ADMIT Family Medicine; ATTEND Family Medicine
PROC: 0F9430Z Drainage of Gallbladder with Drainage Device, Percutaneous Approach (ICD-10-PCS; principal; 2017-09-24)
DX: A41.9 Sepsis, unspecified organism (principal); G93.41 Metabolic encephalopathy; J96.90 Respiratory failure, unspecified, unspecified whether with hypoxia or hypercapnia; N17.9 Acute kidney failure, unspecified; E87.2 Acidosis; E87.3 Alkalosis; K81.0 Acute cholecystitis; E87.0 Hyperosmolality and hypernatremia; E46 Unspecified protein-calorie malnutrition; Z68.1 Body mass index [BMI] 19.9 or less, adult; I95.89 Other hypotension; E86.0 Dehydration; G30.9 Alzheimer's disease, unspecified; F02.80 Dementia in other diseases classified elsewhere, unspecified severity, without behavioral disturbance, psychotic disturbance, mood disturbance, and anxiety; R65.20 Severe sepsis without septic shock; Z51.5 Encounter for palliative care; Z66 Do not resuscitate; I10 Essential (primary) hypertension; E87.70 Fluid overload, unspecified; T50.3X5A Adverse effect of electrolytic, caloric and water-balance agents, initial encounter
CPT/HCPCS: 36415; 71010; 77002; 77012; 80053; 80202; 81003; 81015; 82248; 82553; 82805; 83605; 84443; 84484; 85007; 85025; 85027; 85610; 85730; 86850; 86900; 86901; 87040; 87070; 87077; 87086; 87186; 87205; 93005; 96365; 96367; 96375; A4216; C1729; G8996-GN-CM; G8997-GN-CL; J0694; J1885; J2250; J2543; J3010; J3370; J3430; J3480; J7050